=== PATIENT | female | born 1985 | race Caucasian/White ===

== ENCOUNTER → 2018-02-21 | Outpatient (CLI) | payer SELFPAY | LOC: COL.CARD 11:43 | DX: R00.2 Palpitations (principal) ==

== ENCOUNTER 2018-06-25 20:29 | Emergency (ER) | payer SELFPAY ==
[~2018-06-25] VITALS: Ht 162.6 cm; Wt 86.8 kg
[2018-06-25 22:30] LABS: BASO % 0.6 % (0.0-2.0); EOS % 0.2 % (0-4.0); GRAN # 4.1 (1.4-6.5); GRAN % 76.7 % (42.2-75.2); HEMATOCRIT 41.9 % (37.0-47.0); HEMOGLOBIN 13.8 g/dl (12.5-16.0); LYMPH # 0.9 (1.2-3.4); MEAN CELL VOLUME 89 fl (80.0-100.0); MEAN CORPUSCULAR HEMOGLOBIN 29 pg (27.0-31.0); MEAN CORPUSCULAR HGB CONC 33 g/dl (33.0-37.0); MEAN PLATELET VOLUME 10.1 fl (7.4-10.4); MONO # 0.3 (0.1-0.6); MONO % 6.3 % (1.7-9.3); PLATELET COUNT 250 K/mm3 (130-400); RED BLOOD COUNT 4.73 M/mm3 (4.10-5.30); REDCELL DISTRIBUTION WIDTH-CV 13.5 % (11.5-14.5)
[2018-06-25 22:32] LABS: COLLECTION METHOD CLEAN CATCH
[2018-06-25] MEDS ORDERED: HUMALOG100 U/ML SQ (22:36)
[2018-06-25] MEDS ORDERED: LANTUS100 U/ML SQ (22:36)
[2018-06-25 22:37] LABS: ACETONE,SERUM NEGATIVE
[2018-06-25] MEDS ORDERED: PRINIVIL2.5 MG PO (22:37)
[2018-06-25] MEDS ORDERED: ZOCOR5 MG PO (22:37)
[2018-06-25] MEDS ORDERED: KAPSPARGO SPRIN25 MG PO (22:38)
[2018-06-25] MEDS ORDERED: DYNACIN100 M1 PO (22:39)
[2018-06-25 22:40] LABS: PH 7 (5-8); SQUAMOUS EPITHELIAL 0-2 /hpf; URINE APPEARANCE Clear; URINE BACTERIA Moderate /hpf; URINE BILIRUBIN Negative (NEGATIVE); URINE BLOOD 1+ (NEGATIVE); URINE COLOR Yellow; URINE GLUCOSE Negative (NEGATIVE); URINE KETONE Trace (NEGATIVE); URINE LEUKOCYTE ESTERASE Negative (NEGATIVE); URINE NITRATE Negative (NEGATIVE); URINE PROTEIN(semi-quant) 1+ (NEGATIVE); URINE UROBILINOGEN Negative (NEGATIVE)
[2018-06-25] MEDS ORDERED: PRILOSEC 20MG20 MG PO (22:40)
[2018-06-25] MEDS ORDERED: MUCINEX 60600 MG/TA1 PO (22:41)
[2018-06-25 22:44] LABS: ALANINE AMINOTRANSFERASE 12 U/L (9-52); ALKALINE PHOSPHATASE 113 U/L (50-136); ANION GAP 10 mmol/L (7-16); AST,SGOT 23 U/L (15-37); BILIRUBIN,TOTAL 0.3 mg/dL (0.0-1.0); BLOOD UREA NITROGEN 3 mg/dL (7-17); C-REACTIVE PROTEIN 4.2 mg/dL (0.0-0.9); CALCIUM 9.1 mg/dL (8.4-10.2); CARBON DIOXIDE 24 mmol/L (22-30); CHLORIDE 98 mmol/L (98-107); CREATININE, serum 0.75 mg/dL (0.52-1.25); GLUCOSE 108 mg/dL (74-106); POTASSIUM 4.1 mmol/L (3.4-5.0); SODIUM 132 mmol/L (137-145); TOTAL PROTEIN 7.2 gm/dL (6.4-8.2)
[2018-06-26] MEDS ORDERED: ZITHROMAX500 M2 PO (00:01)
[2018-06-26 00:10] VITALS: BP 119/63; PULSE 85; TEMP 98.9
== END 2018-06-26 00:14 | disposition home or self-care (01) ==
LOC: COL.ER 20:29
PROVIDERS: Emergency Medicine
DX: R50.9 Fever, unspecified (principal); R05 Cough; F17.210 Nicotine dependence, cigarettes, uncomplicated; E10.9 Type 1 diabetes mellitus without complications
CPT/HCPCS: A4216; J0696; J2405; J7030